=== PATIENT | female | born 1980 | race Caucasian/White ===

== ENCOUNTER 2017-01-15 07:12 | Emergency (ER) | payer BC ==
[~2017-01-15] VITALS: Ht 165.1 cm; Wt 99.3 kg
[~2017-01-15 07:12] MED LIST: ACET-1256 PO; PRENTAB26 PO
[2017-01-15 07:18] VITALS: TEMP 36.6; Ht 165.1 cm; Wt 99.3 kg
[2017-01-15] MEDS ORDERED: AMOX875T PO (07:36)
[2017-01-15] MEDS ORDERED: HYDR-5688 PO (07:36)
--- NOTE | 2017-01-15 07:39 | EMERGENCY ROOM VISIT NOTE ---
History First contact with patient: 07:21 Chief Complaint: ARM PAIN Stated Complaint: BURNING PAIN IN LT ARM,COLD SYMPTOMS,25 WKS PREG History of Present Illness The patient is a 36 year old female who is 25 weeks presents to the Emergency Room with complaints of left forearm pain. The patient states that the pain began last night at approximately 9 PM and became more severe at 1 AM. She took Tylenol without any relief. The patient states that she remembers yesterday she "popped her wrist". She states she has done this several times during her . She states that her wrist feels like it needs "crack" and she flexes her wrist and then it "pops". The patient denies any repetitive use of the left wrist. The patient is right-hand dominant. The patient is also complaining of cold symptoms of chest congestion and cough with sputum production for 10 days. She admits to some nasal congestion but denies any ear pain, sore throat or fever. The patient was seen by her PCP early onset of the symptoms and told it was viral. She states that she was instructed to take Sudafed but this has not been helping. Review of Systems 10 system review was performed and was negative unless stated otherwise history of present illness. Past Medical/Surgical History Medical Problems: (1) Asthma (2) Bronchitis (3) Pneumonia Surgical Problems: (1) Hx of appendectomy (2) Previous section Family History Cancer Diabetes mellitus Hypertension Social History Smoking Status: Former Smoker Alcohol Use: none Drug Use: none Marital Status: Housing Status: lives with family Occupation Status: employed Current/Historical Medications Scheduled Acetaminophen (Tylenol), 1,500 MG PO TODAY Multivit/Min/Iron/Fol Ac/Pren ( Vitamin), 1 TAB PO DAILY Allergies Coded Allergies: No Known Allergies (Unverified , 07/12/14) Physical Exam Vital Signs Date Time Temp Pulse Resp B/P Pulse Ox O2 Delivery O2 Flow Rate FiO2 01/15/17 07:18 36.6 98 18 114/64 95 Room Air Physical Exam PHYSICAL EXAM: Vital Signs were reviewed: Temperature 36.6, blood pressure 114/ 64, pulse 98, respiratory rate 18 Reviewed Nurse's notes and agree. Oxygen saturation is 95 % on room air which is normal . GENERAL: 36-year-old female appears in no acute distress. MENTAL STATUS: Alert, oriented, coherent. EARS: Canals clear. TMs good light reflex, no erythema or fluid level noted. NOSE: Nasal mucosa with moderate erythema engorgement. PHARYNX: No erythema, no edema noted. No exudate noted. Airway is adequate. NECK: Supple, non-tender. No lymphadenopathy noted. LUNGS: Clear to auscultation without wheezes rales or rhonchi. CARDIAC: Regular rate and rhythm without murmur. SKIN: No rashes noted. LEFT WRIST: No gross bony deformity noted. No erythema or edema noted. Full range of motion. Positive Bobby's, negative Tinel's negative feelings. Medical Decision & Procedures ED Course The patient was evaluated. The patient was placed in a wrist lacer splint. The patient drove herself to the emergency room therefore additional pain medication was not given in the ER. The patient was discharged home in stable condition. Medical Decision The decision was made to place the patient on antibiotics since she has tenderness duration of symptoms. Differential diagnosis for wrist include tendinitis or carpal tunnel. Impression Primary Impression: Tendinitis of left wrist Additional Impression: Bronchitis Departure Information Dispostion Home / Self-Care Condition GOOD Prescriptions Hydrocodone/Acetaminophen 5MG/325MG ([place] 5MG/325MG) Tab 1-2 TABLET PO Q6 Y for Pain for 3 Days, #20 TAB For Initial Treatment Prov: Jess Mclean PA-C 01/15/17 Amoxicillin & Pot Clavulanate (Augmentin 875-125 mg) 1 Tab Tab 1 TAB PO BID for 10 Days, #20 TAB Prov: Jess Mclean PA-C 01/15/17 Referrals No Doctor, Assigned (PCP) Forms HOME CARE DOCUMENTATION FORM, IMPORTANT VISIT INFORMATION Patient Instructions Bronchitis Acute, [facility] Additional Instructions BRONCHITIS: Take Augmentin as prescribed. Recommend [id number] Flonase as directed on the label. Push fluids, rest. If symptoms are not improving, follow-up with family physician. TENDINITIS LEFT WRIST: Ice several times a day or especially after repetitive use. Wear wrist splint except for bathing for 2 weeks. Take Tylenol as needed for pain. Take [place] as needed for more severe pain. Do not take Tylenol in addition to the [place], since there is Tylenol within the [place]. Do not drive while taking the [place]. If symptoms are not improving in 2 weeks, follow-up with your family physician. Problem Qualifiers
[2017-01-15 07:48] VITALS: BP 123/80; PULSE 107; O2SAT 96
[2017-04-17] MEDS ORDERED: IRON TABS PO (13:38)
[2017-04-17] MEDS ORDERED: SENNTAB23 PO (13:38)
[2017-04-17] MEDS ORDERED: ACET-1256 PO (13:38)
[2017-04-17] MEDS ORDERED: PRLSR20 PO (13:38)
[2017-04-27] MEDS ORDERED: MTR600X PO (08:49)
[2017-04-27] MEDS ORDERED: HYDR-5688 PO (08:49)
[2017-08-06] MEDS ORDERED: PENI-82 PO (22:07)
[2017-08-06] MEDS ORDERED: OXYC1TAB3 PO (22:07)
== END 2017-01-15 07:50 | disposition home or self-care (01) ==
LOC: C.EDB 07:14 → C.EDA 07:50
DX: O99.89 Other specified diseases and conditions complicating pregnancy, childbirth and the puerperium (principal); O99.512 Diseases of the respiratory system complicating pregnancy, second trimester; M77.8 Other enthesopathies, not elsewhere classified; Z3A.25 25 weeks gestation of pregnancy; J40 Bronchitis, not specified as acute or chronic; Z87.01 Personal history of pneumonia (recurrent); Z80.9 Family history of malignant neoplasm, unspecified; Z83.3 Family history of diabetes mellitus; Z82.49 Family history of ischemic heart disease and other diseases of the circulatory system; Z87.891 Personal history of nicotine dependence

== ENCOUNTER 2017-04-25 05:29 | Inpatient (IN) | payer BC ==
--- NOTE | 2017-04-17 13:56 | PAT Medication Instructions ---
Service Date Apr 17, 2017. Current Home Medication List Acetaminophen (Tylenol), 1,000 MG PO DIRECTED PRN for Pain Acetaminophen (Tylenol), 1,000 MG PO PRN Multivit/Min/Iron/Fol Ac/Pren ( Vitamin), 1 TAB PO QAM Omeprazole (Prilosec), 20 MG PO QAM PRN for RN Sennosides-Docusate Sodium (Stool Softener), 1-2 TAB PO QAM [Iron Tabs], 1 TAB PO QAM Medication Instructions For Your Scheduled Surgery - Hold the following medications the morning of surgery: [Iron Tabs], 1 TAB PO QAM Multivit/Min/Iron/Fol Ac/Pren ( Vitamin), 1 TAB PO QAM Sennosides-Docusate Sodium (Stool Softener), 1-2 TAB PO QAM - Take the following medications the morning of surgery with a sip of water OTHERWISE NOTHING TO EAT OR DRINK AFTER MIDNIGHT: Acetaminophen (Tylenol), 1,000 MG PO DIRECTED PRN for Pain (may take if needed up to 4 hours prior to surgery) Acetaminophen (Tylenol), 1,000 MG PO PRN (may take if needed up to 4 hours prior to surgery) Omeprazole (Prilosec), 20 MG PO QAM PRN If you have any questions please call us at [phone] or [phone] or [phone]
[2017-04-17 14:37] LABS: COMPLETE YES; EOS % 0.7 %; IG% 1.2 %; LYMPH % 17.7 %; MEAN CELL VOLUME 96.6 fL (80-100); MEAN CORPUSCULAR HEMOGLOBIN 32.1 pg (25-34); MEAN CORPUSCULAR HGB CONC 33.2 g/dl (32-36); MEAN PLATELET VOLUME 9.8 fL (7.4-10.4); MONO % 6.3 %; NEUT % 74.1 %; PLATELET COUNT 246 K/uL (130-400); RED BLOOD COUNT 3.52 M/uL (4.2-5.4); WHITE BLOOD COUNT 7.33 K/uL (4.8-10.8)
--- NOTE | 2017-04-24 17:05 | OPERATIVE REPORT ---
DATE OF OPERATION: 04/25/2017 REASON FOR ADMISSION: Scheduled repeat section CLINICAL HISTORY: The patient is a 36-year-old 5, para 1-0-3-1, who presents for a repeat elective section. The patient had a primary section previously for transverse presentation. The patient is electing a repeat with bilateral tubal ligation currently. 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 PAST SURGICAL HISTORY: Positive for D&E, appendectomy, eardrum surgery and . SOCIAL HISTORY: The patient is a former smoker. Denies alcohol or drug use. CURRENT MEDICATIONS: Include vitamins. ALLERGIES: CALCIUM CARBONATE ANTACID. PHYSICAL EXAMINATION: HEENT: Within normal limits. LUNGS: Clear to auscultation. HEART: Regular rate and rhythm. ABDOMEN: Soft, nontender, gravid. VITAL SIGNS: Blood pressure 116/74. EXTREMITIES: Within normal limits. NEUROLOGIC: Intact. ASSESSMENT: Term . PLAN: Elective repeat section and voluntary sterilization with bilateral tubal ligation. I attest to the content of the Intraoperative Record and any orders documented therein. Any exception s are noted below.
[~2017-04-25] VITALS: Ht 165.1 cm; Wt 102.3 kg
[2017-04-25] VITALS (16 sets, daily range): BP systolic 107–146; BP diastolic 67–93; PULSE 75–93; TEMP 36.3–36.5; O2SAT 94–100; Ht 165.1 cm; Wt 102.3 kg
[~2017-04-25 05:29] MED LIST changes: +IRON TABS PO; +PRLSR20 PO; +SENNTAB23 PO
[2017-04-25] MEDS ORDERED: LACTATED RINGER'S 1000ML 1,000 ML IV SCH ×5 (06:00→17:45)
[2017-04-25] MEDS ORDERED: CITRIC ACID/SODIUM CITRATE 15 ML UDC PO SCH (06:00)
[2017-04-25] MEDS ORDERED: CEFAZOLIN IV 3,000 MG in DEXTROSE 5% 50ML IV SCH (06:00)
[2017-04-25 06:21] LABS: BASO % 0.1 %; BASO ABS # 0.01 K/uL (0-0.2); EOS % 0.8 %; HEMATOCRIT 33.7 % (37-47); LYMPH % 21.2 %; LYMPH ABS # 1.51 K/uL (1.2-3.4); MEAN CELL VOLUME 97.4 fL (80-100); MEAN CORPUSCULAR HEMOGLOBIN 32.7 pg (25-34); MEAN PLATELET VOLUME 10.3 fL (7.4-10.4); MONO % 8.3 %; NEUT % 68.6 %; PLATELET COUNT 243 K/uL (130-400); RED BLOOD COUNT 3.46 M/uL (4.2-5.4); WHITE BLOOD COUNT 7.11 K/uL (4.8-10.8)
[2017-04-25 06:25] LABS: COMPLETE YES; MEAN CORPUSCULAR HGB CONC 33.5 g/dl (32-36)
--- NOTE | 2017-04-25 07:17 | History & Physical Bridge Note ---
H&P Re-Evaluation Bridge Note: I have examined the patient, reviewed the History & Physical and in the interval since the performance of the History & Physical I have noted the following changes of clinical significance: No changes noted
[2017-04-25] MEDS ORDERED: MoRPHine SULFATE PF 1 MG/ML 10 ML AMP/VIAL ONE (07:54)
[2017-04-25] MEDS ORDERED: FENTANYL CITRATE INJ 50 MCG/1 ML 2 ML VIAL ONE (07:55)
[2017-04-25] MEDS ORDERED: PHENYLEPHRINE HCL INJ 10 MG/ML VIAL ONE (08:18)
[2017-04-25] MEDS ORDERED: OXYTOCIN INJ 10 UNITS/ML VIAL ONE ×2 (08:18→08:45)
[2017-04-25] MEDS ORDERED: EpHEDrine SULFATE 50MG/5ML SYR ONE (08:18)
[2017-04-25] MEDS ORDERED: ONDANSETRON INJ 2 MG/ML 2 ML VIAL ONE (08:24)
[2017-04-25] MEDS ORDERED: NALOXONE HCL INJ 1 MG in SODIUM CHLORIDE 0.9% 1000ML 1,000 ML IV PRN (08:56)
[2017-04-25] MEDS ORDERED: SODIUM CHLORIDE 0.9% 1000ML 1,000 ML IV PRN (08:56)
[2017-04-25] MEDS ORDERED: NALOXONE HCL INJ 0.08 MG in SYRINGE 1.8 ML IV PRN (08:56)
[2017-04-25] MEDS ORDERED: LACTATED RINGER'S 1000ML 500 ML IV PRN (08:56)
[2017-04-25] MEDS ORDERED: ONDANSETRON INJ 2 MG/ML 2 ML VIAL IV PRN (09:00)
[2017-04-25] MEDS ORDERED: MoRPHine SULFATE PF 1 MG/ML 10 ML AMP/VIAL EPI PRN (09:00)
[2017-04-25] MEDS ORDERED: NO NARCOTICS OR SEDATIVES SCH (09:00)
[2017-04-25] MEDS ORDERED: MoRPHine SULFATE 2 MG/ML CARP IV PRN (09:00)
[2017-04-25] MEDS ORDERED: NALBUPHINE HCL INJ 10 MG/ML AMP IV PRN (09:00)
[2017-04-25] MEDS ORDERED: NALOXONE HCL 0.4 MG/1 ML VIAL/CARP IV PRN (09:00)
[2017-04-25] MEDS ORDERED: DiphenhydrAMINE HCL 50 MG/ML VIAL IV PRN (09:00)
[2017-04-25] MEDS ORDERED: EpHEDrine SULFATE INJ 50 MG/ML AMP IV PRN (09:00)
[2017-04-25] MEDS ORDERED: HYDROCORTISONE ACETATE 25 MG SUPP PR PRN (09:30)
[2017-04-25] MEDS ORDERED: SUPERCREAM 0.870 % 15GM JAR EXT PRN (09:30)
[2017-04-25] MEDS ORDERED: BENZOCAINE 20% AER SPR 82.5 GM CAN EXT PRN (09:30)
[2017-04-25] MEDS ORDERED: DIPHTHERIA/TETANUS/PERTUSSIS 0.5 ML SYR/VIAL IM. ONE (09:30)
[2017-04-25] MEDS ORDERED: MAGNESIUM HYDROXIDE SUSP 30 ML UDC PO PRN (09:30)
[2017-04-25] MEDS ORDERED: MEASLES, MUMPS & RUBELLA VIRUS VIAL SQ. ONE (09:30)
[2017-04-25] MEDS ORDERED: SENNA 8.6 MG TAB PO PRN (09:30)
[2017-04-25] MEDS ORDERED: LANOLIN OINT EXT PRN ×2 (09:30)
--- NOTE | 2017-04-25 09:34 | [facility] Post Operative Brief Note ---
Immediate Operative Summary Operative Date Apr 25, 2017. Pre-Operative Diagnosis ELECTIVE REPEAT SECTION AND VOLUNTARY STERILIZATION WITH BILATERAL TUBAL LIGATION Post-Operative Diagnosis SAME double footling breech Procedure(s) Performed Live female infant delivered via cesearean section and filshe clips applied to bilateral fallopian tubes for sterilization Surgeon Dr Lopez Stitching Machine Feeder Or Offbearer Surgeon(s) Dr Isaac Estimated Blood Loss 500 Findings Live female double footling breech nuchal cord x2 Fluids (cc crystalloids) 2400 ml LR Specimens placenta cord blood Drains Chappell clear urine Anesthesia Spinal with duramorph Complication(s) None Disposition L&D
[2017-04-25] MEDS: MEPERIDINE HCL 25 MG/ML CARP IV PRN ×2 (10:43→13:40)
[2017-04-25] MEDS: OXYTOCIN INJ 20 UNITS in LACTATED RINGER'S 1000ML 1,000 ML IV SCH ×2 (10:44→19:28)
[2017-04-25] MEDS ORDERED: KETOROLAC TROMETHAMINE 30 MG/ML VIAL ONE (11:13)
[2017-04-25] MEDS ORDERED: NURSING VERBAL MED ORDER ONE (11:15)
[2017-04-25] MEDS: KETOROLAC TROMETHAMINE 30 MG/ML VIAL IV. PRN (11:16)
[2017-04-25] MEDS ORDERED: KETOROLAC TROMETHAMINE 30 MG/ML VIAL IV. PRN (11:30)
--- NOTE | 2017-04-25 11:33 | Anesthesiology Progress Note ---
Anesthesia Post Op Note Date & Time Apr 25, 2017 at 11:32 Vital Signs Pain Intensity: 4 Notes Mental Status: alert / awake / arousable, participated in evaluation Pt Amnestic to Procedure: Yes Nausea / Vomiting: adequately controlled Pain: adequately controlled Airway Patency, RR, SpO2: stable & adequate BP & HR: stable & adequate Hydration State: stable & adequate Anesthetic Complications: no major complications apparent
[2017-04-25] MEDS: SIMETHICONE 80 MG CHEW PO SCH ×3 (12:36→19:30)
--- NOTE | 2017-04-25 18:20 | OPERATIVE REPORT ---
DATE OF OPERATION: 04/25/2017 PREOPERATIVE DIAGNOSES: Term elective repeat section and voluntary sterilization. SURGEON: Dr. Lopez. MANAGER DOCUMENT: Dr. Isaac. ANESTHESIA: Spinal with Duramorph. CLINICAL HISTORY: The patient is a 36-year-old female, para 1-0-3-1 at 39 weeks, admitted for an elective repeat section and bilateral tubal ligation. A timeout was called and antibiotics were given preop. Timeout was successful and the procedures were started. DESCRIPTION OF PROCEDURE: After satisfactory spinal anesthesia, the patient was prepped and draped in the usual sterile fashion. A low Pfannenstiel incision through a prior scar was then made entering into the abdominal cavity in successive layers. Pickups and Metzenbaums were then used to develop a bladder flap. This was then sharply dissected down. A low segment transverse incision over the lower uterine segment was made. The amniotic sac was nicked and it was found to be clear. The incision was widened in the AP diameter. The infant was found to be in the double footling breech presentation, grabbing the feet, the baby was extracted without difficulty. There was a nuchal cord x2, which was reduced at the time of delivery. The cord was doubly clamped and cut. Baby was handed to vba developer. Apgars were 7 and 9, live female. weight is pending. Cord blood was obtained. Placenta was then delivered spontaneously and intact. Uterus was then exteriorized. Ring forceps were used to grab both angles and another ring was then used to dilate the cervix. The uterus was closed in a single layer closure using 0 Vicryl suture in a continuous interlocking fashion followed by irrigation, which was clear. Tubes were identified bilaterally. Both tubes were found to be free and 2 Filshie clips were applied to both tubes in the usual manner without difficulty. The contents of the pelvic cavity were then irrigated. The uterus was then placed back into the normal anatomical position. The fascia was then reapproximated from both ends using #1 Vicryl in a continuous fashion. Subcuticular space was irrigated. The subQ space was then closed with 3-0 plain suture, followed by 4-0 Monocryl suture for subcuticular closure of the skin. Steri-Strips were then applied. Clear urine was noted from the Chappell. Estimated blood loss was 500 mL. The final sponge, needle and instrument counts were found to be correct. The patient was placed supine on a stretcher. She was taken to recovery room in stable condition. I attest to the content of the Intraoperative Record and any orders documented therein. Any exception s are noted below.
[2017-04-25] MEDS: DOCUSATE SODIUM 100 MG CAP PO SCH (19:30)
[2017-04-26] VITALS (7 sets, daily range): BP systolic 120–144; BP diastolic 77–81; PULSE 82–103; TEMP 36.4–36.6; O2SAT 18–100
[2017-04-26] MEDS: KETOROLAC TROMETHAMINE 30 MG/ML VIAL IV. PRN (01:07)
[2017-04-26] MEDS ORDERED: DC INTRASPINAL MORPHINE SCH (02:15)
[2017-04-26] MEDS: IBUPROFEN 600 MG TAB PO PRN ×3 (06:42→21:04)
[2017-04-26 07:01] LABS: BASO % 0.1 %; BASO ABS # 0.01 K/uL (0-0.2); COMPLETE YES; EOS % 1.2 %; HEMATOCRIT 31.9 % (37-47); IG% 0.8 %; LYMPH % 13.6 %; LYMPH ABS # 1.21 K/uL (1.2-3.4); MEAN CELL VOLUME 98.2 fL (80-100); MEAN CORPUSCULAR HEMOGLOBIN 32.9 pg (25-34); MEAN CORPUSCULAR HGB CONC 33.5 g/dl (32-36); MEAN PLATELET VOLUME 10.2 fL (7.4-10.4); MONO % 7.1 %; NEUT % 77.2 %; PLATELET COUNT 193 K/uL (130-400); RED BLOOD COUNT 3.25 M/uL (4.2-5.4)
[2017-04-26] MEDS: FERROUS SULFATE 325 MG TAB PO SCH (07:32)
[2017-04-26] MEDS: DOCUSATE SODIUM 100 MG CAP PO SCH ×2 (07:32→20:44)
[2017-04-26] MEDS: SIMETHICONE 80 MG CHEW PO SCH ×4 (07:32→20:44)
[2017-04-26] MEDS: PRENATAL VITAMIN TAB PO SCH (07:32)
[2017-04-26] MEDS: OXYCODONE/ACETAMINOPHEN 5-325 TAB PO PRN ×2 (09:02→13:13)
[2017-04-26] MEDS ORDERED: ONDANSETRON INJ 2 MG/ML 2 ML VIAL IV PRN (09:15)
[2017-04-26] MEDS ORDERED: DiphenhydrAMINE HCL 50 MG/ML VIAL IV PRN (09:15)
[2017-04-26] MEDS ORDERED: HYDROCODONE/ACETAMOPHEN 5/325MG TAB PO PRN (15:45)
[2017-04-26] MEDS: HYDROCODONE/ACETAMOPHEN 5/325MG TAB PO PRN ×2 (18:05→23:51)
[2017-04-26] MEDS ORDERED: BISACODYL 5 MG TABEC PO ONE (22:00)
[2017-04-27] MEDS: SIMETHICONE 80 MG CHEW PO SCH (07:36)
[2017-04-27] MEDS: PRENATAL VITAMIN TAB PO SCH (07:36)
[2017-04-27] MEDS: DOCUSATE SODIUM 100 MG CAP PO SCH (07:36)
[2017-04-27] MEDS: FERROUS SULFATE 325 MG TAB PO SCH (07:36)
[2017-04-27] MEDS: IBUPROFEN 600 MG TAB PO PRN (07:37)
[2017-04-27] MEDS: HYDROCODONE/ACETAMOPHEN 5/325MG TAB PO PRN ×2 (07:37→12:48)
[2017-04-27 07:40] VITALS: BP 128/85; PULSE 91; TEMP 36.6; O2SAT 99
[2017-04-27] MEDS ORDERED: HYDR-5688 PO (08:49)
[2017-04-27] MEDS ORDERED: MTR600X PO (08:49)
--- NOTE | 2017-04-27 08:51 | Discharge Instructions ---
Discharge Instructions Date of Service Apr 27, 2017. Admission Reason for Admission: Previous Section, Breech, Desires Sterili Discharge Discharge Diagnosis / Problem: term pregnacy delivered Discharge Goals Goal(s): Routine recovery after delivery, Routine recovery after Activity Recommendations Activity Limitations: as noted below Lifting Limitations: no more than 10 pounds, gradually increase as tolerated Exercise/Sports Limitations: until after follow-up appointment May Resume Sexual Activity: after follow-up appointment Shower/Bathe: no limitations Driving or Machine Use: no limitations . Instructions / Follow-Up Instructions / Follow-Up ACTIVITY RECOMMENDATIONS: * Gradual return to full activity over the next 2-3 weeks. * No lifting - nothing heavier than baby over the next 2-3 weeks. * Do not engage in vigorous exercise, sexual activity or sports until cleared by your physician. * Do not drive or operate any motorized equipment until cleared by your physician. * You may shower/bathe daily. BREAST CARE: If you are not breast feeding: * Wear a supportive bra 24 hours a day for one to two weeks. * Avoid stimulating your breasts and nipples as much as possible during the first few weeks after delivery. * When taking a shower, have the warm water hit your back, not breasts. * When your breasts feel full, apply ice packs. Usually three to four times a day helps ease the discomfort. * Take a mild pain medication (Tylenol/Motrin) when you are uncomfortable. If breast feeding: * Use breast milk to lubricate nipples. Lansinoh cream may be used for sore nipples. You do not need to remove cream prior to breast feeding. If using a different brand of cream, check the label for directions regarding removal of cream prior to nursing. * Wear a supportive bra. * If having problems with breasts or breast feeding, call a philatelic consultant or your health care provider. OVER THE COUNTER MEDICATION: * For discomfort or pain, you may use Acetaminophen (Tylenol), Ibuprofen (Advil ), or Naproxen (Aleve) following the package directions. * For constipation you may use Colace following the package directions. SPECIAL CARE INSTRUCTIONS: When you are discharged from the hospital, it is important for you to follow the instructions listed below: * During the first week at home, you should be able to care for yourself and your baby. In addition, the usual light household activities are encouraged. * Limit your activities to the way you feel. Do not try to clean the house or move furniture. Be sensible. * If you actively engage in sports and have done so up until the time of your delivery, you may resume these activities as soon as you feel able. This may take up to one month or even longer. Use good judgment. * Continue to take your vitamins for at least six weeks after the of your baby. * Your diet need not be limited unless you were on a special diet before your delivery. Breast-feeding mothers need around 2500 calories per day and at least 64-80 ounces of fluid per day (8 to 10 glasses). * You should eat foods from the four major food groups. Crash diets or fad diets are to be avoided. Eating lean meats, fresh fruits and vegetables, low-fat dairy products, high fiber foods and a regular exercise program, will help you get back to your pre- weight without putting your health at risk. * Constipation is sometimes a problem after delivery. Take a mild laxative as needed. If breast feeding, Milk of Magnesia is acceptable to use. You may use a suppository or Fleets enema if no episiotomy. * A daily shower or tub bath is suggested. Be sure to thoroughly and gently dry the perineum. * A bloody vaginal discharge will usually continue until around four weeks post . A small amount of bleeding may continue for as long as six weeks. Vaginal discharge changes from the bright red bleeding after delivery to pink then brownish and finally yellowish-pink before becoming white and disappearing. * Bleeding may increase with activity. Your first period may come in 4-8 weeks. If you are breast feeding, your period may be delayed even longer. * [place] (sex) can begin whenever both you and your partner feel comfortable and do not have any form of genital infection. It is recommended that you wait at least six weeks for internal and external healing to occur. If you have questions, please talk to your health care practitioner. A condom should be used to prevent infection and . * Foreplay, gentle intercourse and lubrication is very important the first several times to prevent pain. A water-based lubricant such as K-Y jelly or Astroglide may be used. * Tampons and/or Douching should be avoided until after six weeks check-up. * If you have RH negative blood and your baby is RH positive, you will receive RHOGAM by injection prior to discharge. The nurse will give you a card to keep with you that has the date and place that you received RHOGAM after delivery. * During your care, you had a Rubella screen done to check for the presence of rubella antibodies in your blood. If your test was negative, you will receive a Rubella vaccine prior to discharge. This vaccine may cause a fever, soreness at the injection site and flu-like symptoms. If these symptoms persist, notify your health care practitioner. is not advised for three months after a Rubella vaccine. * Verbalizes understanding of car seat law as reviewed with patient nursing. * Car Seat hand-out given and reviewed with patient by nursing. * Shaken baby information reviewed with patient by nursing. Call you doctor if: * Heavy bleeding (saturating several pads an hour) or passing clots the size of your fist. * A fever >101 degrees F (38.3 degrees C) on two occasions four hours apart and /or chills. * Unusual pain in the pelvic or vaginal areas. Pain should improve each day . * Call the doctor for any increased redness, drainage or swelling around the incision and any pain unrelieved by prescribed pain medication. * Any signs or symptoms of phlebitis (possible blood clots forming in the veins ): leg pain, warm, red or swollen area on leg. * "Baby Blues" lasting longer than two weeks. If you have any questions or concerns, call your health care practitioner at . FOLLOW-UP VISIT: * Incision check (staple removal) in 1 week. Please call doctor's office at to set up appointment. * Please call the office at to schedule a 6 week examination. It is important you keep this appointment. * It is important for you to make arrangements for either yearly or twice yearly check-ups thereafter. Current Hospital Diet Patient's current hospital diet: Regular Diet Discharge Diet Recommended Diet: Regular OB Diet Fluid Restriction: None Procedures Procedures Performed: Live female delivered via cesearean section and filshe clips applied to bilateral fallopian tubes for sterilization Pending Studies Studies pending at discharge: no Medical Emergencies . Who to Call and When: Medical Emergencies: If at any time you feel your situation is an emergency, please call 911 immediately. . Non-Emergent Contact Non-Emergency issues call your: Primary Care Provider . . "Provider Documentation" section prepared by Sanjay Lopez. . VTE Core Measure Inpt VTE Proph given/why not?: Treatment not indicated
--- NOTE | 2017-04-27 08:52 | Surgery Progress Note ---
Surgery Progress Note Date of Service Apr 27, 2017. Subjective Post OP Day: 2 + feeling well Objective Vital Signs: Date Time Temp Pulse Resp B/P (MAP) Pulse Ox O2 Delivery O2 Flow Rate FiO2 04/27/17 07:40 99 Room Air 04/27/17 07:40 36.6 91 18 128/85 (99) 99 Room Air 04/26/17 23:55 97 Room Air 04/26/17 23:55 36.6 99 18 144/80 (101) 97 Room Air 04/26/17 15:40 Room Air 04/26/17 15:34 36.4 100 20 124/81 (95) 96 Room Air General Appearance: no apparent distress Abdomen: non tender, non distended Incision(s): clean, dry, intact Extremities: normal range of motion Assessment & Plan POD#2 d/c regular diet
[2017-04-27] MEDS ORDERED: BISACODYL 10 MG SUPP PR PRN (09:30)
[2017-04-27 12:45] VITALS: BP_DIAS 85; PULSE 91; TEMP 36.6
--- NOTE | 2017-05-10 10:44 | DISCHARGE SUMMARY ---
REASON FOR ADMISSION AND HOSPITAL COURSE: The patient is a 36-year-old female 5, para 1-0-3-1, who presents for an elective repeat section at term. She is also requesting a bilateral tubal ligation. section was done under spinal anesthesia without difficulty. The patient was noted to be a double footling breech. She had a tubal ligation, which was performed at the time of surgery. The patient delivered without incident. There was a nuchal cord x2. Live female. The hospital course was unremarkable. The patient was discharged on 04/27/2017. She was given Tylenol #3 along with the continuation of her vitamins. She was given a regular diet on discharge and she was to be followed up in 1 week in the clinic. FINAL DISCHARGE DIAGNOSIS: Term delivered with voluntary sterilization. ANURAG
== END 2017-04-27 13:15 | disposition home or self-care (01) | DRG 766 ==
LOC: C.LD 05:29 → EDSTATUS 07:30 → C.OBG 11:21
PROVIDERS: ADMIT Obstetrics & Gynecology; ATTEND Obstetrics & Gynecology
PROC: 0UL70CZ Occlusion of Bilateral Fallopian Tubes with Extraluminal Device, Open Approach (ICD-10-PCS; principal; 2017-04-25 07:30)
PROC: 10D00Z1 Extraction of Products of Conception, Low, Open Approach (ICD-10-PCS; principal; 2017-04-25 07:30)
DX: O34.211 Maternal care for low transverse scar from previous cesarean delivery (principal); O32.8XX0 Maternal care for other malpresentation of fetus, not applicable or unspecified; N85.8 Other specified noninflammatory disorders of uterus; O69.81X0 Labor and delivery complicated by cord around neck, without compression, not applicable or unspecified; O99.62 Diseases of the digestive system complicating childbirth; K21.9 Gastro-esophageal reflux disease without esophagitis; O99.214 Obesity complicating childbirth; E66.9 Obesity, unspecified; Z68.37 Body mass index [BMI] 37.0-37.9, adult; Z30.2 Encounter for sterilization; Z3A.39 39 weeks gestation of pregnancy; Z37.0 Single live birth; Z87.891 Personal history of nicotine dependence; Z79.899 Other long term (current) drug therapy

== ENCOUNTER 2017-05-05 16:06 | Emergency (ER) | payer BC ==
[~2017-05-05] VITALS: Ht 167.6 cm; Wt 96.7 kg
[~2017-05-05 16:06] MED LIST changes: +HYDR-5688 PO; +MTR600X PO; -SENNTAB23 PO
[2017-05-05 16:09] VITALS: TEMP 36.6; Ht 167.6 cm; Wt 96.7 kg
--- NOTE | 2017-05-05 16:29 | EMERGENCY ROOM VISIT NOTE ---
History Report prepared by Scribe: Hetal Figueroa Under the Supervision of: Dr. Charlie Driscoll M.D. First contact with patient: 16:15 Chief Complaint: INFECTION Stated Complaint: CSECTION 04/25/17, PAIN/BLEEDING W YELLO DISCHARGE History of Present Illness The patient is a 36 year old female who presents to the Emergency Room with complaints of a worsening infection. She had a section performed on April 25 and states the surgical wound has become increasingly red and is now producing yellow discharge. The wound occasionally bleeds. She rates her discomfort as a 7/10 and describes the area has feeling "tender". The wound was originally closed with sutures. Last night, the patient went to sit up and states she was struck with "screaming pain". The patient denies any recent fevers, chills, cough or cold symptoms, back pain, nausea, vomiting or diarrhea. She notes her feet are swollen, but states this has been constant since her daughter was born. Her CYBER CRIME INVESTIGATOR is Dr. Lopez with [facility]. Source of History: patient Onset: April 25, 2017 Position: abdomen Symptom Intensity: 7/10 Quality: other ("tender") Timing: worsening Associated Symptoms: No fevers, No chills, No cough (cough or cold symptoms) , No nausea, No vomiting, No diarrhea Review of Systems See HPI for pertinent positives and negatives. A total of ten systems were reviewed and were otherwise negative. Past Medical & Surgical Medical Problems: (1) Asthma (2) Bronchitis (3) elective repeat at term (4) Pneumonia Surgical Problems: (1) Hx of appendectomy (2) Previous section Family History Cancer Diabetes mellitus Hypertension Social History Smoking Status: Former Smoker Alcohol Use: none Drug Use: none Marital Status: Housing Status: lives with family Occupation Status: employed Current/Historical Medications Scheduled Acetaminophen (Tylenol), 1,000 MG PO PRN Clindamycin Hcl (Clindamycin Hcl), 3 CAP PO QID Multivit/Min/Iron/Fol Ac/Pren ( Vitamin), 1 TAB PO HS Saccharomyces Boulardii (Florastor), 1 CAP PO BID Scheduled PRN Acetaminophen (Tylenol), 1,000 MG PO DIRECTED PRN for Pain Ibuprofen (Ibuprofen), 1 TAB PO Q4H PRN for Pain or Fever Oxycodone Ir (Roxicodone Ir), 1-2 TAB PO Q4H PRN for Pain Allergies Coded Allergies: Oxycodone (Verified Allergy, Unknown, SEVERE HEADACHE-REBOUND, 04/25/17) Physical Exam Vital Signs Date Time Temp Pulse Resp B/P (MAP) Pulse Ox O2 Delivery O2 Flow Rate FiO2 05/05/17 19:53 86 18 131/88 99 05/05/17 17:59 88 18 119/78 100 Room Air 05/05/17 16:09 36.6 89 20 125/73 98 Room Air Physical Exam GENERAL: Awake, alert, well-appearing, in no distress HENT: Normocephalic, atraumatic. Oropharynx unremarkable. EYES: Normal conjunctiva. Sclera non-icteric. NECK: Supple. No nuchal rigidity. FROM. No JVD. RESPIRATORY: Clear to auscultation. CARDIAC: Regular rate, normal rhythm. Extremities warm and well perfused. Pulses equal. ABDOMEN: Soft, non-distended. Mild suprapubic, infraumbilical tenderness to palpation, no peritoneal signs. No rebound or guarding. No masses. RECTAL: Deferred. PELVIC: Mildly bloody discharge from cervical os, no CMT, normal mucosa. MUSCULOSKELETAL: Chest examination reveals no tenderness. The back is symmetrical on inspection without obvious abnormality. There is no CVA tenderness to palpation. No joint edema. LOWER EXTREMITIES: Calves are equal size bilaterally and non-tender. 2+ edema bilaterally. No discoloration. NEURO: Normal sensorium. No sensory or motor deficits noted. SKIN: Mild erythema across incision site, with induration and fluctuance in left lateral area, dehiscence in far left lateral aspect of incision site. No rash or jaundice noted. Medical Decision & Procedures ER Provider Diagnostic Interpretation: Bedside Ultrasound shows a .5 cm abscess on the left lateral aspect of the incision site. Laboratory Results 05/05/17 17:00 Red Blood Count 3.98, Mean Corpuscular Volume 97.0, Mean Corpuscular Hemoglobin 32.2, Mean Corpuscular Hemoglobin Concent 33.2, Mean Platelet Volume 9.4, Neutrophils (%) (Auto) 58.3, Lymphocytes (%) (Auto) 33.4, Monocytes (%) (Auto) 5.5, Eosinophils (%) (Auto) 2.3, Basophils (%) (Auto) 0.2, Neutrophils # (Auto) 3.57, Lymphocytes # (Auto) 2.05, Monocytes # (Auto) 0.34, Eosinophils # (Auto) 0.14, Basophils # (Auto) 0.01 05/05/17 17:00 Test 05/05/17 16:52 05/05/17 17:00 Urine Color YELLOW Urine Appearance CLEAR (CLEAR) Urine pH 7.0 (4.5-7.5) Urine Specific [place] 1.022 (1.000-1.030) Urine Protein NEG (NEG) Urine Glucose (UA) NEG (NEG) Urine Ketones NEG (NEG) Urine Occult Blood 3+ (NEG) Urine Nitrite NEG (NEG) Urine Bilirubin NEG (NEG) Urine Urobilinogen NEG (NEG) Urine Leukocyte Esterase SMALL (NEG) Urine WBC (Auto) 5-10 /hpf (0-5) Urine RBC (Auto) >30 /hpf (0-4) Urine Hyaline Casts (Auto) 1-5 /lpf (0-5) Urine Epithelial Cells (Auto) 20-30 /lpf (0-5) Urine Bacteria (Auto) NEG (NEG) White Blood Count 6.13 K/uL (4.8-10.8) Red Blood Count 3.98 M/uL (4.2-5.4) Hemoglobin 12.8 g/dL (12.0-16.0) Hematocrit 38.6 % (37-47) Mean Corpuscular Volume 97.0 fL (80-100) Mean Corpuscular Hemoglobin 32.2 pg (25-34) Mean Corpuscular Hemoglobin Concent 33.2 g/dl (32-36) Platelet Count 378 K/uL (130-400) Mean Platelet Volume 9.4 fL (7.4-10.4) Neutrophils (%) (Auto) 58.3 % Lymphocytes (%) (Auto) 33.4 % Monocytes (%) (Auto) 5.5 % Eosinophils (%) (Auto) 2.3 % Basophils (%) (Auto) 0.2 % Neutrophils # (Auto) 3.57 K/uL (1.4-6.5) Lymphocytes # (Auto) 2.05 K/uL (1.2-3.4) Monocytes # (Auto) 0.34 K/uL (0.11-0.59) Eosinophils # (Auto) 0.14 K/uL (0-0.5) Basophils # (Auto) 0.01 K/uL (0-0.2) RDW Standard Deviation 49.8 fL (36.4-46.3) RDW Coefficient of Variation 13.8 % (11.5-14.5) Immature Granulocyte % (Auto) 0.3 % Immature Granulocyte # (Auto) 0.02 K/uL (0.00-0.02) Anion Gap 8.0 mmol/L (3-11) Est Creatinine Clear Calc Drug Dose 118.4 ml/min Estimated GFR () 115.1 Estimated GFR (Non- 99.3 BUN/Creatinine Ratio 24.8 (10-20) Calcium Level 9.2 mg/dl (8.5-10.1) Laboratory results reviewed by me Medications Administered Medications (Trade) Dose Ordered Sig/Rachael Route Start Time Stop Time Status Last Admin Dose Admin Acetaminophen (Tylenol Tab) 1,000 mg NOW STAT PO 05/05/17 18:23 05/05/17 18:24 DC 05/05/17 18:37 1,000 MG Clindamycin HCl (Cleocin Cap) 450 mg ONE ONCE PO 05/05/17 19:45 05/05/17 19:46 DC 05/05/17 19:51 450 MG Oxycodone HCl (Roxicodone Immediate Rel Tab) 5 mg NOW STAT PO 05/05/17 19:44 05/05/17 19:46 DC 05/05/17 19:51 5 MG ED Course 1641: The patient was evaluated in room C2B. A complete history and physical exam was performed. 1853: Acetaminophen 1000 mg PO. 1838: I discussed the patients case with Washington Jennings CYBER CRIME INVESTIGATOR. He recommends oral antibiotics and will follow up with the patient on Sunday in the office. 1903: I reevaluated the patient. She is feeling well and resting comfortably. I discussed her results and discharge instructions and she verbalized complete understanding and agreement. Medical Decision I reviewed the patient's past medical history, medications, and the nursing notes as described above. Differential diagnosis includes abscess, cellulitis, wound dehiscence, endometritis Patient is a 36-year-old woman with a past medical history of a section at the end of March presents with worsening abdominal pain at the incision site which had been sutured, patient felt a pop last night when sitting up per history of present illness. This occurs in the setting of having some mild wound dehiscence in the left lateral aspect of her incision site. Patient arrives to emergency department in no acute distress, afebrile with stable vital signs. Abdomen is mildly tender along the incision site but no peritoneal signs. Slight dehiscence on the left lateral aspect with associated induration and underlying fluctuance. Bedside ultrasound shows 0.5 cm fluid collection in that area consistent with abscess. Pelvic exam with mild bloody discharge from the cervical os otherwise no CMT and mucosa appears normal. WBC within normal limits and patient is afebrile. Considering this, with reassuring pelvic exam, endometritis unlikely. I discussed this with CYBER CRIME INVESTIGATOR on-call who agrees that with normal white count, no fever, and well-appearing that the patient may be managed outpatient. Recommends oral antibiotics and will follow up on Sunday. Findings and plan for f/u d/w patient. Patient agreeable and d/c'd per discharge instructions. Medication Reconcilliation Current Medication List: was personally reviewed by me Blood Pressure Screening Patient's blood pressure: Normal blood pressure Blood pressure disposition: Did not require urgent referral Consults Time Called: 1829 Consulting Physician: Washington Jennings CYBER CRIME INVESTIGATOR Returned Call: [phone] I discussed the patients case with Washington Jennings CYBER CRIME INVESTIGATOR. He recommends oral antibiotics and will follow up with the patient on Sunday in the office. Impression Primary Impression: Abscess Additional Impression: Cellulitis Scribe Attestation The scribe's documentation has been prepared under my direction and personally reviewed by me in its entirety. I confirm that the note above accurately reflects all work, treatment, procedures, and medical decision making performed by me. Departure Information Dispostion Home / Self-Care Prescriptions Oxycodone Ir (Roxicodone Ir) 5 Mg Tab 1-2 TAB PO Q4H Y for Pain, #5 TAB Prov: Charlie Driscoll M.D. 05/05/17 Saccharomyces Boulardii (Florastor) 250 Mg Cap 1 CAP PO BID for 10 Days, #20 CAP Prov: Charlie Driscoll M.D. 05/05/17 Clindamycin Hcl (CLINDAMYCIN HCL) 150 Mg Cap 3 CAP PO QID for 7 Days, #84 CAP Prov: Charlie Driscoll M.D. 05/05/17 Referrals No Doctor, Assigned (PCP) Patient Instructions Cellulitis Dc, ED Abscess Abx Tx Only Ch, My [facility] Additional Instructions Please follow up with your youth nutritional monitor on Sunday. You have an infection of her surgical site with a small associated abscess. Otherwise, your exam and lab results did not show signs of an emergent condition. Take antibiotics as directed as well as probiotic to help prevent antibiotic associated diarrhea. Acetaminophen for pain as needed. Oxycodone for breakthrough pain as needed. Return to the emergency department for worsening symptoms as described in the accompanying instructions. Problem Qualifiers
[2017-05-05] MEDS ORDERED: SODIUM CHLORIDE 0.9% 1000ML 1,000 ML IV STA (16:38)
[2017-05-05] MEDS ORDERED: MTR/600 PO (17:04)
[2017-05-05 17:14] LABS: URINE APPEARANCE CLEAR (CLEAR); URINE BILIRUBIN NEG (NEG); URINE COLOR YELLOW; URINE EPITHELIAL CELL AUTO 20-30 /lpf (0-5); URINE NITRITE NEG (NEG); URINE SPECIFIC GRAVITY 1.022 (1.000-1.030); UROBILINOGEN NEG (NEG); ZZUR CULT IF INDIC CLEAN CATCH NO
[2017-05-05 17:15] LABS: MANUAL MICROSCOPIC REQUIRED? NO; REVIEW REQ? NO
[2017-05-05 17:18] LABS: BASO % 0.2 %; BASO ABS # 0.01 K/uL (0-0.2); COMPLETE YES; EOS % 2.3 %; HEMATOCRIT 38.6 % (37-47); IG% 0.3 %; LYMPH % 33.4 %; LYMPH ABS # 2.05 K/uL (1.2-3.4); MEAN CORPUSCULAR HEMOGLOBIN 32.2 pg (25-34); MEAN CORPUSCULAR HGB CONC 33.2 g/dl (32-36); MEAN PLATELET VOLUME 9.4 fL (7.4-10.4); MONO % 5.5 %; NEUT % 58.3 %; PLATELET COUNT 378 K/uL (130-400); RED BLOOD COUNT 3.98 M/uL (4.2-5.4); WHITE BLOOD COUNT 6.13 K/uL (4.8-10.8)
[2017-05-05 17:37] LABS: BUN/CREATININE RATIO 24.8 (10-20); CALCIUM 9.2 mg/dl (8.5-10.1); CREATININE 0.77 mg/dl (0.60-1.20); POTASSIUM 3.8 mmol/L (3.5-5.1)
[2017-05-05] MEDS ORDERED: ACETAMINOPHEN 500 MG TAB PO STA (18:23)
[2017-05-05] MEDS ORDERED: CLIN150C15 PO (19:36)
[2017-05-05] MEDS ORDERED: SACC250C3 PO (19:36)
[2017-05-05] MEDS ORDERED: OXYC1TAB3 PO (19:36)
[2017-05-05] MEDS ORDERED: OXYCODONE HCL IR 5 MG TAB (IMMEDIATE RELEASE) PO STA (19:44)
[2017-05-05] MEDS ORDERED: CLINDAMYCIN HCL 150 MG CAP PO ONE (19:45)
[2017-05-05 19:53] VITALS: BP 131/88; PULSE 86; O2SAT 99
== END 2017-05-05 19:53 | disposition home or self-care (01) ==
LOC: C.EDB 16:09 → C.EDC 19:53
DX: L02.211 Cutaneous abscess of abdominal wall (principal); L03.311 Cellulitis of abdominal wall; J45.909 Unspecified asthma, uncomplicated; Z87.01 Personal history of pneumonia (recurrent); Z80.9 Family history of malignant neoplasm, unspecified; Z83.3 Family history of diabetes mellitus; Z82.49 Family history of ischemic heart disease and other diseases of the circulatory system; Z87.891 Personal history of nicotine dependence

== ENCOUNTER → 2017-05-31 | Outpatient (CLI) | payer BC ==
[~2017-05-31] MED LIST changes: +CLIN150C15 PO; -HYDR-5688 PO; -IRON TABS PO; +MTR/600 PO; -MTR600X PO; +OPTIRAY 320 IV PRN; +OXYC1TAB3 PO; -PRLSR20 PO; +SACC250C3 PO
--- NOTE | 2017-05-31 15:31 | DIAGNOSTIC IMAGING REPORT ---
(CHEST FOR PE) ANGIO WITH CLINICAL HISTORY: 36 years-old Female presenting with chest pain, shortness of breath, elevated d-dimer. TECHNIQUE: Multidetector CT angiography of the chest was performed after administration of intravenous contrast. 3-D volumetric and maximum intensity projection (MIP) images were subsequently reconstructed for review. IV contrast: 119 mL of Optiray 320. A dose lowering technique was used consistent with the principles of ALARA (as low as reasonably achievable). COMPARISON: None. CT DOSE (mGy.cm): The estimated cumulative dose is 614.43 mGycm. FINDINGS: Ems Driver topogram: Unremarkable. Pulmonary vasculature: The study is suboptimal for assessment of the pulmonary vascular tree secondary to respiratory motion artifact. No filling defect within the pulmonary arteries to suggest embolus. Main pulmonary artery not enlarged. No flattening of the interventricular septum. No intracardiac filling defect. Remaining chest: On soft tissue windows, multiple thyroid nodules measuring up to 14 mm on the right and 13 mm on the left. Residual thymic tissue noted. No axillary, supraclavicular, hilar, or mediastinal lymphadenopathy. Normal aorta. Normal heart size. No pericardial or pleural effusion. Upper abdomen normal. On lung windows, pulmonary cyst noted in the right lower lobe. This may indicate prior infection or trauma. No focal infiltrate. No interlobular septal thickening. Airways patent. On bone windows, normal osseous structures. IMPRESSION: 1. No evidence of pulmonary embolus. No convincing evidence of acute intrathoracic pathology. 2. Multiple thyroid nodules measuring over 1 cm. Follow-up outpatient ultrasound could be considered as clinically warranted. Electronically signed by: Mikey Godinez M.D. 05/31/2017 3:30 PM Dictated Date/Time: 05/31/2017 3:24 PM
== END | disposition home or self-care (01) ==
LOC: C.CTS 15:02
PROVIDERS: ATTEND Physician Assistant
DX: R07.9 Chest pain, unspecified (principal); R06.02 Shortness of breath; R79.89 Other specified abnormal findings of blood chemistry

== ENCOUNTER 2017-08-26 16:40 | Emergency (ER) | payer BC ==
[~2017-08-26] VITALS: Ht 167.6 cm; Wt 96.9 kg
[~2017-08-26 16:40] MED LIST changes: -CLIN150C15 PO; -OPTIRAY 320 IV PRN; +PENI-82 PO; -PRENTAB26 PO; -SACC250C3 PO
[2017-08-26 16:43] VITALS: TEMP 36.4; Ht 167.6 cm; Wt 96.9 kg
[2017-08-26] MEDS ORDERED: LACTATED RINGER'S 1000ML 1,000 ML IV STA (16:50)
[2017-08-26] MEDS ORDERED: ONDANSETRON INJ 2 MG/ML 2 ML VIAL IV STA (16:50)
[2017-08-26] MEDS ORDERED: FENTANYL CITRATE INJ 50 MCG/1 ML 2 ML VIAL IV STA (16:50)
--- NOTE | 2017-08-26 17:05 | EMERGENCY ROOM VISIT NOTE ---
History Report prepared by Merrill: Dyana Tabor Under the Supervision of: Dr. Charlie Driscoll M.D. First contact with patient: 16:47 Chief Complaint: CARDIAC ASSESSMENT Stated Complaint: PAIN IN CHEST/RIBS AND BACK History of Present Illness The patient is a 36 year old female who presents to the Emergency Room with complaints of intermittent chest pain across her lower ribs beginning 2 hours ago. The patient notes she had pain like this in May but it only lasted about 30 minutes in the past. The patient reports her doctor thought her pain may be anxiety related. She has some medical testing with her PCP tomorrow but she is unsure of what it is for. The patient notes eating a delayed thanksgiving dinner today and reports her pain started 15 minutes after eating. She notes nausea but denies any fever, cough, or congestion. The patient took Prilosec and ibuprofen with no relief. The patient is not a smoker. She denies any alcohol use, drug use or chance of . The patient has a history of tubal ligation. Source of History: patient Onset: 2 hours ago Position: chest Timing: intermittent Associated Symptoms: + nausea, No fevers, No cough Review of Systems See HPI for pertinent positives and negatives. A total of ten systems were reviewed and were otherwise negative. Past Medical & Surgical Medical Problems: (1) Asthma (2) Bronchitis (3) elective repeat at term (4) Pneumonia Surgical Problems: (1) Hx of appendectomy (2) Previous section Family History Cancer Diabetes mellitus Hypertension Social History Smoking Status: Former Smoker Alcohol Use: none Drug Use: none Marital Status: Housing Status: lives with family Occupation Status: employed Current/Historical Medications Scheduled Omeprazole (Prilosec), 20 MG PO DAILY Scheduled PRN Ibuprofen (Advil), 400 MG PO UD PRN for Pain Allergies Coded Allergies: Oxycodone (Verified Adverse Reaction, Unknown, SEVERE HEADACHE-REBOUND, ) pt states if she gets a headache when taking this, tylenol will make it go away Physical Exam Vital Signs Date Time Temp Pulse Resp B/P (MAP) Pulse Ox O2 Delivery O2 Flow Rate FiO2 08/26/17 19:20 77 20 118/83 100 Room Air 08/26/17 18:31 97 20 130/81 97 Room Air 08/26/17 17:21 83 08/26/17 16:43 36.4 97 20 145/76 100 Room Air Physical Exam GENERAL: Awake, alert, uncomfortable, anxious-appearing, in no distress HENT: Normocephalic, atraumatic. Oropharynx unremarkable. Dry MM. EYES: Normal conjunctiva. Sclera non-icteric. NECK: Supple. No nuchal rigidity. FROM. No JVD. RESPIRATORY: Clear to auscultation. CARDIAC: Regular rate, normal rhythm. Extremities warm and well perfused. Pulses equal. ABDOMEN: Soft, non-distended. Mild epigastric tenderness, mild right upper quadrant tenderness with positive Arango's, no peritoneal signs. RECTAL: Deferred. MUSCULOSKELETAL: Chest examination reveals no tenderness. The back is symmetrical on inspection without obvious abnormality. There is no CVA tenderness to palpation. No joint edema. LOWER EXTREMITIES: Calves are equal size bilaterally and non-tender. No edema. No discoloration. NEURO: Normal sensorium. No sensory or motor deficits noted. SKIN: No rash or jaundice noted. Medical Decision & Procedures ER Provider Diagnostic Interpretation: Radiology results as stated below per my review and radiologist interpretation: EMMD: Enlarged gallbladder with several large mobile gallstones with a likely lodged gallstone in gallbladder neck, no gross pericholecystic fluid. CHEST ONE VIEW PORTABLE FINDINGS: The lungs are clear. Cardiac silhouette is normal in size. No pleural effusions. No pneumothorax. IMPRESSION: No acute process. Electronically signed by: Selwyn Aldrich M.D. ABDOMINAL ULTRASOUND, RIGHT UPPER QUADRANT FINDINGS: Pancreas: The pancreas demonstrates a normal echotexture. Liver: Unremarkable. Gallbladder: No gallbladder wall thickening. Multiple small gallstones. CBD: 5 mm. Right kidney: No hydronephrosis. IMPRESSION: 1. Multiple small gallstones. No gallbladder wall thickening. 2. Normal caliber common bile duct. Electronically signed by: Selwyn Aldrich M.D. Laboratory Results 08/26/17 17:26 Red Blood Count 4.00, Mean Corpuscular Volume 95.0, Mean Corpuscular Hemoglobin 33.0, Mean Corpuscular Hemoglobin Concent 34.7, Mean Platelet Volume 9.6, Neutrophils (%) (Auto) 69.7, Lymphocytes (%) (Auto) 20.4, Monocytes (%) (Auto) 8.1, Eosinophils (%) (Auto) 1.5, Basophils (%) (Auto) 0.0, Neutrophils # (Auto) 4.98, Lymphocytes # (Auto) 1.46, Monocytes # (Auto) 0.58, Eosinophils # (Auto) 0.11, Basophils # (Auto) 0.00 08/26/17 17:26 Test 08/26/17 17:26 White Blood Count 7.15 K/uL (4.8-10.8) Red Blood Count 4.00 M/uL (4.2-5.4) Hemoglobin 13.2 g/dL (12.0-16.0) Hematocrit 38.0 % (37-47) Mean Corpuscular Volume 95.0 fL (80-100) Mean Corpuscular Hemoglobin 33.0 pg (25-34) Mean Corpuscular Hemoglobin Concent 34.7 g/dl (32-36) Platelet Count 301 K/uL (130-400) Mean Platelet Volume 9.6 fL (7.4-10.4) Neutrophils (%) (Auto) 69.7 % Lymphocytes (%) (Auto) 20.4 % Monocytes (%) (Auto) 8.1 % Eosinophils (%) (Auto) 1.5 % Basophils (%) (Auto) 0.0 % Neutrophils # (Auto) 4.98 K/uL (1.4-6.5) Lymphocytes # (Auto) 1.46 K/uL (1.2-3.4) Monocytes # (Auto) 0.58 K/uL (0.11-0.59) Eosinophils # (Auto) 0.11 K/uL (0-0.5) Basophils # (Auto) 0.00 K/uL (0-0.2) RDW Standard Deviation 44.2 fL (36.4-46.3) RDW Coefficient of Variation 12.8 % (11.5-14.5) Immature Granulocyte % (Auto) 0.3 % Immature Granulocyte # (Auto) 0.02 K/uL (0.00-0.02) Anion Gap 11.0 mmol/L (3-11) Est Creatinine Clear Calc Drug Dose 109.9 ml/min Estimated GFR () 105.1 Estimated GFR (Non- 90.7 BUN/Creatinine Ratio 16.3 (10-20) Calcium Level 8.9 mg/dl (8.5-10.1) Total Bilirubin 1.1 mg/dl (0.2-1) Direct Bilirubin 0.5 mg/dl (0-0.2) Aspartate Amino Transf (AST/SGOT) 218 U/L (15-37) Alanine Aminotransferase (ALT/SGPT) 135 U/L (12-78) Alkaline Phosphatase 72 U/L (45-117) Troponin I < 0.015 ng/ml (0-0.045) Total Protein 7.9 gm/dl (6.4-8.2) Albumin 4.2 gm/dl (3.4-5.0) Lipase 161 U/L (73-393) Human Chorionic Gonadotropin, Qual NEG (NEG) Laboratory results reviewed by me Medications Administered Medications (Trade) Dose Ordered Sig/Rachael Route Start Time Stop Time Status Last Admin Dose Admin Lactated Ringer's 1,000 ml @ 999 mls/hr Q1H1M STAT IV 08/26/17 16:50 08/26/17 17:50 DC 08/26/17 17:26 999 MLS/HR Fentanyl Citrate (Fentanyl Inj) 50 mcg NOW STAT IV 08/26/17 16:50 08/26/17 16:56 DC 08/26/17 17:26 50 MCG Ondansetron HCl (Zofran Inj) 4 mg NOW STAT IV 08/26/17 16:50 08/26/17 16:56 DC 08/26/17 17:26 4 MG Morphine Sulfate (MoRPHine SULFATE INJ) 4 mg NOW STAT IM 08/26/17 18:33 08/26/17 18:35 DC 08/26/17 18:17 4 MG ED Course 1650: The patient was evaluated in room C11B. A complete history and physical exam was performed. 1704: I performed a bedside ultrasound. See radiology report. 1936: The patient is asymptomatic. She will follow-up outpatient with surgery. 1956: I reevaluated the patient. Discussed results and discharge instructions: She verbalized understanding and agreement. The patient is ready for discharge. Medical Decision I reviewed the patient's past medical history, medications, and the nursing notes as described above. Differential Diagnoses: Cholecystitis, choledocholithiasis, gastritis, GERD, ACS, pneumonia, bronchitis, panic attack. Patient is a 36-year-old woman who presents to emergency department with severe upper abdominal lower chest pain with nausea and vomiting for the past 2-1/2 hours with onset 15 minutes after eating a Thanksgiving meal per history of present illness. The patient is mildly uncomfortable and anxious, afebrile with stable vital signs. Positive Arango sign. Bedside ultrasound shows several mobile gallstones with ?gallstone in the gallbladder neck. No gross pericholecystic fluid. Unable to visualize CBD. Positive sonographic Arango sign. Will clarify with formal right upper quadrant ultrasound. WBC within normal limits. Bilirubin with obstructive pattern with direct bili elevated to 0.5 total bili 1.1. However, formal RUQ US with unremarkable CBD and no signs of cholecystitis. Patient was reassessed and symptoms completely resolved. Direct bili elevation likely 2/2 transient obstruction given resolution of sx. However, strict return instructions provided. CM assisting to arrange for outpatient surgery f/u. Findings and plan for follow-up reviewed with patient. Patient agreeable and d/c'd per discharge instructions. Medication Reconcilliation Current Medication List: was personally reviewed by me Blood Pressure Screening Patient's blood pressure: Normal blood pressure Impression Primary Impression: Biliary colic Additional Impression: Multiple gallstones Scribe Attestation The scribe's documentation has been prepared under my direction and personally reviewed by me in its entirety. I confirm that the note above accurately reflects all work, treatment, procedures, and medical decision making performed by me. Departure Information Dispostion Home / Self-Care Referrals No Doctor, Assigned (PCP) Forms IMPORTANT VISIT INFORMATION Patient Instructions ED Gallstone W Biliary Colic, My [facility] Additional Instructions Please follow up with your primary care physician and with surgery within the next week for re-evaluation and discussion of today's findings. Your symptoms were likely due to your multiple gallstones. Otherwise, your exam, ultrasound, and lab results did not show signs of an emergent condition at this time. Avoid fatty foods as this can provoke your symptoms. Return to the emergency department for worsening symptoms as described in the accompanying instructions. Problem Qualifiers
[2017-08-26 17:41] LABS: COMPLETE YES; EOS % 1.5 %; IG% 0.3 %; LYMPH % 20.4 %; LYMPH ABS # 1.46 K/uL (1.2-3.4); MEAN CORPUSCULAR HGB CONC 34.7 g/dl (32-36); MEAN PLATELET VOLUME 9.6 fL (7.4-10.4); MONO % 8.1 %; NEUT % 69.7 %; PLATELET COUNT 301 K/uL (130-400); WHITE BLOOD COUNT 7.15 K/uL (4.8-10.8)
--- NOTE | 2017-08-26 17:53 | DIAGNOSTIC IMAGING REPORT ---
CHEST ONE VIEW PORTABLE HISTORY: Atypical CHEST PAIN COMPARISON: None. FINDINGS: The lungs are clear. Cardiac silhouette is normal in size. No pleural effusions. No pneumothorax. IMPRESSION: No acute process. Electronically signed by: Selwyn Aldrich M.D. 08/26/2017 5:51 PM Dictated Date/Time: 08/26/2017 5:51 PM
[2017-08-26 17:59] LABS: ALT/SGPT 135 U/L (12-78); BLOOD UREA NITROGEN 14 mg/dl (7-18); BUN/CREATININE RATIO 16.3 (10-20); CALCIUM 8.9 mg/dl (8.5-10.1); CARBON DIOXIDE 24 mmol/L (21-32); CHLORIDE 103 mmol/L (98-107); CREATININE 0.83 mg/dl (0.60-1.20); GLUCOSE 122 mg/dl (70-99); POTASSIUM 3.3 mmol/L (3.5-5.1); SODIUM 138 mmol/L (136-145)
[2017-08-26 18:04] LABS: ALKALINE PHOSPHATASE 72 U/L (45-117); AST/SGOT 218 U/L (15-37)
[2017-08-26] MEDS ORDERED: MoRPHine SULFATE 4 MG/ML 1 ML CARP\\VIAL IV STA (18:06)
[2017-08-26] MEDS ORDERED: IBUP-1050 PO (18:07)
[2017-08-26] MEDS ORDERED: OMEP20CA9 PO (18:07)
[2017-08-26 18:15] LABS: PREG INTERNAL NEGATIVE QC NEG CLEAR BACKGROUND; PREG INTERNAL POSITIVE QC POS CONTROL LINE
[2017-08-26] MEDS: MoRPHine SULFATE 2 MG/ML CARP IM STA (18:17)
[2017-08-26 19:20] VITALS: BP 118/83; PULSE 77; O2SAT 100
--- NOTE | 2017-08-26 19:27 | DIAGNOSTIC IMAGING REPORT ---
ABDOMINAL ULTRASOUND, RIGHT UPPER QUADRANT HISTORY: +Arango's sign, gallstone in GB neck. COMPARISON: None. FINDINGS: Pancreas: The pancreas demonstrates a normal echotexture. Liver: Unremarkable. Gallbladder: No gallbladder wall thickening. Multiple small gallstones. CBD: 5 mm. Right kidney: No hydronephrosis. IMPRESSION: 1. Multiple small gallstones. No gallbladder wall thickening. 2. Normal caliber common bile duct. Electronically signed by: Selwyn Aldrich M.D. 08/26/2017 7:25 PM Dictated Date/Time: 08/26/2017 7:23 PM
== END 2017-08-26 19:50 | disposition home or self-care (01) ==
LOC: C.EDB 16:41 → C.EDC 19:50
DX: K80.70 Calculus of gallbladder and bile duct without cholecystitis without obstruction (principal); J45.909 Unspecified asthma, uncomplicated; Z98.51 Tubal ligation status; Z87.891 Personal history of nicotine dependence; Z83.3 Family history of diabetes mellitus; Z82.49 Family history of ischemic heart disease and other diseases of the circulatory system

== ENCOUNTER 2017-09-07 18:31 | Emergency (ER) | payer BC ==
[~2017-09-07] VITALS: Ht 165.1 cm; Wt 97.3 kg
[~2017-09-07 18:31] MED LIST changes: -ACET-1256 PO; +IBUP-1050 PO; -MTR/600 PO; +OMEP20CA9 PO; -OXYC1TAB3 PO; -PENI-82 PO
[2017-09-07 18:36] VITALS: TEMP 36.8; Ht 165.1 cm; Wt 97.3 kg
[2017-09-07] MEDS ORDERED: HYDR-5688 PO (18:58)
[2017-09-07] MEDS ORDERED: PENI-82 PO (18:58)
--- NOTE | 2017-09-07 19:00 | EMERGENCY ROOM VISIT NOTE ---
ED Visit Note First contact with patient: 18:44 CHIEF COMPLAINT: "Dental pain". HISTORY OF PRESENT ILLNESS: This 36-year-old female patient presented to the emergency department via private vehicle with a progressive toothache for past 2 -3 weeks that acutely worsened over the past day because she bit down on a cashew. The patient believes it is coming from inferior right posterior molars. The pain is now steady and severe and radiates to the face. The patient has a dentist appointment set up for summer. They rate their pain a 7/10 and the ibuprofen and Tylenol they have been taking has not relieved the pain. Denies facial swelling or fever. The patient denies any discharge from the mouth. REVIEW OF SYSTEMS: A 6 system review of systems was completed with positives and pertinent negatives listed in the HPI. ALLERGIES: Oxycodone MEDICATIONS: As noted below PMH: Previous tooth fracture SOCIAL HISTORY: Patient lives locally PHYSICAL EXAM: Vitals are noted on the nurse's note and reviewed by myself. Vital signs stable. Temperature 36.8C orally. GENERAL: 30 sexual female, in no acute distress, nondiaphoretic, well-developed well-nourished. Mouth: The right posterior inferior molar tooth is very carious and the gum is swollen and tender around it, without any discharge or signs of an abscess. The remainder of the pharynx and tonsils are without erythema, edema, or exudate. The airway is patent. There is no facial swelling, cervical or submandibular lymphadenopathy. The patient appears uncomfortable and in pain. The patient has overall fair dental hygiene. EARS: External auditory canals clear, tympanic membranes pearly renner without erythema or effusion bilaterally. ED COURSE: Patient was seen and evaluated as above. Previous visit was reviewed. She was here previously for dental fracture. On exam it appears that this has worsened secondary to her chewing a cashew recently. The [employer] drug monitoring system was queried and no red flags were identified. She'll be given a short prescription of [place] for pain as the oxycodone seemed to interact and cause headaches. At this time she is to follow with her dentist. There is no signs of Zach angina, or abscess. She was educated upon worrisome symptoms which to return, had questions answered prior to discharge, and was discharged home in good condition. She will also be given Pen-Vee K in the event and infection will develop. In the evaluation and treatment of this patient, the following differential diagnoses were considered: Periapical Abscess, Osteonecrosis of the Jaw, Dental Fracture, Dental Caries, Zach's Angina, Vincent's Angina, Facial Cellulitis. Problem List Medical Problems: (1) Asthma Status: Chronic (2) Bronchitis Status: Resolved (3) Pneumonia Status: Resolved Surgical Problems: (1) Hx of appendectomy Status: Resolved (2) Previous section Status: Resolved Current/Historical Medications Scheduled Omeprazole (Prilosec), 20 MG PO DAILY Penicillin V Potassium (Veetids), 500 MG PO QID Scheduled PRN Hydrocodone/Acetaminophen 5MG/325MG (Sheyenne 5MG/325MG), 1-2 TABLET PO Q6 PRN for Pain Ibuprofen (Advil), 400 MG PO UD PRN for Pain Allergies Coded Allergies: Oxycodone (Verified Adverse Reaction, Unknown, SEVERE HEADACHE-REBOUND, ) pt states if she gets a headache when taking this, tylenol will make it go away Vital Signs Date Time Temp Pulse Resp B/P (MAP) Pulse Ox O2 Delivery O2 Flow Rate FiO2 09/07/17 19:26 72 18 134/98 96 09/07/17 18:36 36.8 79 18 146/85 97 Room Air Medications Administered Medications (Trade) Dose Ordered Sig/Rachael Route Start Time Stop Time Status Last Admin Dose Admin Acetaminophen/ Hydrocodone Bitart (Sheyenne 5/325mg Home Pack) 1 homepack UD STAT PO 09/07/17 19:01 09/07/17 19:02 DC 09/07/17 19:26 1 HOMEPACK Departure Information Impression Primary Impression: Fractured tooth Dispostion Home / Self-Care Condition GOOD Prescriptions Hydrocodone/Acetaminophen 5MG/325MG (Sheyenne 5MG/325MG) Tab 1-2 TABLET PO Q6 Y for Pain, #15 TAB For Initial Treatment Prov: Lane Strange PA-C 09/07/17 Penicillin V Potassium (Veetids) 500 Mg Tab 500 MG PO QID, #40 TAB Prov: Lane Strange PA-C 09/07/17 Referrals Rhonda Jackson D.O. (PCP) Patient Instructions My [facility] Additional Instructions You have been treated in the Emergency Department for Dental Pain. You have been prescribed NORCO to be used for pain control. This is a narcotic medication. You cannot drive or consume alcohol while on this medicine. This medicine should only be used for pain that cannot be controlled with over-the- counter pain medicines. You were prescribed PENVK to be taken every 6 hours. This is an antibiotic. All antibiotics have the potential to cause diarrhea. Stop this medication and contact a medical provider if you were to develop any significant adverse side effects including: wheezing, shortness of breath, passing out, vomiting, or a diffuse rash. Always take antibiotics as directed and COMPLETE the ENTIRE course regardless of the improvement of your symptoms. For pain control, you can use the following [id number] medicines (if >12 yo): PLEASE NO TYLENOL WITH THE NORCO!! - Regular strength (200 mg/tab) Advil (ibuprofen) 1-2 tabs every 4-6 hours as needed. Do not exceed a dose of 3200 mg per day. Refrain from smoking cigarettes or using chewing tobacco until you have been evaluated by your dentist. Keeping beverages lukewarm and consuming soft foods can decrease your pain. Warm compresses over the affected area may offer some relief. You MUST seek evaluation of your dental pain by a dentist following your visit to the Emergency Department. The Emergency Department is not capable of treating dental issues long-term. You should call your dentist as soon as possible to make an appointment for evaluation of your dental pain. Return to the emergency department if you develop the following symptoms despite treatment course outlined above: fever, intractable pain, increased redness, swelling, or purulent discharge.
[2017-09-07] MEDS ORDERED: NORCO 5/325MG HOME PACK PO STA (19:01)
[2017-09-07 19:26] VITALS: BP 134/98; PULSE 72; O2SAT 96
== END 2017-09-07 19:27 | disposition home or self-care (01) ==
LOC: C.EDB 18:32 → C.EDD 19:27
DX: S02.5XXA Fracture of tooth (traumatic), initial encounter for closed fracture (principal); X58.XXXA Exposure to other specified factors, initial encounter; Y92.9 Unspecified place or not applicable; J45.909 Unspecified asthma, uncomplicated; Z79.899 Other long term (current) drug therapy

== ENCOUNTER 2017-09-22 01:15 | Emergency (ER) | payer BC ==
[~2017-09-22] VITALS: Ht 165.1 cm; Wt 97.8 kg
[~2017-09-22 01:15] MED LIST changes: +HYDR-5688 PO; +PENI-82 PO
[2017-09-22 01:19] VITALS: TEMP 36.9; Ht 165.1 cm; Wt 97.8 kg
[2017-09-22] MEDS ORDERED: NORCO 5/325MG HOME PACK PO ONE (01:30)
[2017-09-22] MEDS ORDERED: PENICILLIN V POTASSIUM 250 MG TAB PO ONE (01:30)
--- NOTE | 2017-09-22 01:32 | EMERGENCY ROOM VISIT NOTE ---
History Report prepared by Merrill: Alejandro Bowens Under the Supervision of: Dr. Adrian Torres M.D. First contact with patient: 01:25 Chief Complaint: DENTAL PAIN Stated Complaint: TOOTH PAIN Nursing Triage Summary: pt c/o cracked right bottom tooth, states "it's been awhile, some time this month." states she has an appt with oral surgery on the but pain has become worse. History of Present Illness The patient is a 36 year old female who presents to the Emergency Room with complaints of constant dental pain that began a month ago. She rates her pain as an 8/10 in severity. The patient states that she cracked her right bottom tooth a month ago and reports that she came to the ED. She states that she was prescribed [place], which she reports she has been cutting in half to extend her usage period. The patient states that she has scheduled oral surgery on the to remove the cracked tooth and her wisdom tooth. She denies facial swelling, trouble swallowing, shortness of breath, and chest pain. The patient reports that she also has scheduled a cholecystectomy on October 05. Source of History: patient Onset: a month ago Position: other (right bottom tooth) Symptom Intensity: 8/10 Timing: constant Modifying Factors (Relieving): other (Fieldton) Associated Symptoms: No chest pain, No SOB Review of Systems See HPI for pertinent positives & negatives. A total of 6 systems reviewed and were otherwise negative. Past Medical & Surgical Medical Problems: (1) Asthma (2) Bronchitis (3) elective repeat at term (4) Pneumonia Surgical Problems: (1) Hx of appendectomy (2) Previous section Family History Cancer Diabetes mellitus Hypertension Social History Smoking Status: Never Smoker Alcohol Use: none Drug Use: none Marital Status: Housing Status: lives with family Occupation Status: employed Current/Historical Medications Scheduled Omeprazole (Prilosec), 20 MG PO DAILY Penicillin V Potassium (Veetids), 500 MG PO QID Scheduled PRN Hydrocodone/Acetaminophen 5MG/325MG ([place] 5MG/325MG), 1-2 TABLET PO Q6 PRN for Pain Hydrocodone/Acetaminophen 5MG/325MG ([place] 5MG/325MG), 1 TABLET PO Q4H PRN for Pain Ibuprofen (Advil), 400 MG PO UD PRN for Pain Allergies Coded Allergies: Oxycodone (Verified Adverse Reaction, Unknown, SEVERE HEADACHE-REBOUND, ) pt states if she gets a headache when taking this, tylenol will make it go away Physical Exam Vital Signs Date Time Temp Pulse Resp B/P (MAP) Pulse Ox O2 Delivery O2 Flow Rate FiO2 09/22/17 01:58 89 18 132/93 98 09/22/17 01:19 36.9 81 18 128/78 94 Room Air Physical Exam GENERAL: Patient is uncomfortable appearing and in mild distress. HEENT: No acute trauma, normocephalic atraumatic, mucous membranes moist, no nasal congestion, no scleral icterus. Fractured carious right posterior molar. Mild surrounding erythema. NECK: No stridor, no adenopathy, no meningismus, trachea is midline. LUNGS: No dyspnea. Clear to auscultation and equal bilaterally. No wheeze, no rhonchi. HEART: Regular rate and rhythm. No murmurs, rubs, gallops appreciated. EXTREMITIES: Normal motion all extremities, no cyanosis, no edema. NEUROLOGIC: Alert and oriented, no acute motor or sensory deficits, no focal weakness, cranial nerves grossly intact. Medical Decision & Procedures Medications Administered Medications (Trade) Dose Ordered Sig/Rachael Route Start Time Stop Time Status Last Admin Dose Admin Penicillin V Potassium (Veetids Tab) 500 mg ONE ONCE PO 09/22/17 01:30 09/22/17 01:32 DC 09/22/17 01:52 500 MG Acetaminophen/ Hydrocodone Bitart ([place] 5/325mg Home Pack) 1 homepack UD ONCE PO 09/22/17 01:30 09/22/17 01:32 DC 09/22/17 01:52 1 HOMEPACK ED Course 0126: The patient was evaluated in room C12B. A complete history and physical exam was performed. 0129: Reevaluated the patient. Discussed results and discharge instructions: She verbalized understanding and agreement. The patient is ready for discharge. 0130: Ordered Hydrocodone Bitart/Acetaminophen 1 homepack PO, Veetids Tab 500 mg PO. Medical Decision Pleasant 36 yr old female with fractured/carious right posterior lower molar who has OMFS follow up in 6 days. She notes using 15 Fieldton tabs over last 3 weeks to get through pain but finally running out of them. Tramadol ineffective from PCP. Clearly uncomfortable. She is open about Fieldton and is not exhibiting clear evidence of drug seeking other than pain continues. She has plan to rectify dental issues. She understands the very real risk of narcotic addiction as well as restrictions regarding them. She hernandez not have ludwigs, abscess, nor need for emergent surgical evaluation. Reviewed symptoms requiring return. [facility] Drug Monitoring Program Search Results: patient reviewed within database, see additional documentation Drug Monitoring Findings: The patient has had 2 controlled substance prescriptions within the last month, which she is honest about. Medication Reconcilliation Current Medication List: was personally reviewed by me Blood Pressure Screening Patient's blood pressure: Normal blood pressure Impression Primary Impression: Fractured tooth Additional Impression: Dental caries Scribe Attestation The scribe's documentation has been prepared under my direction and personally reviewed by me in its entirety. I confirm that the note above accurately reflects all work, treatment, procedures, and medical decision making performed by me. Departure Information Dispostion Home / Self-Care Prescriptions Hydrocodone/Acetaminophen 5MG/325MG ([place] 5MG/325MG) Tab 1 TABLET PO Q4H Y for Pain, #15 TAB Prov: Adrian Torres M.D. 09/22/17 Penicillin V Potassium (Veetids) 500 Mg Tab 500 MG PO QID, #40 TAB Prov: Adrian Torres M.D. 09/22/17 Referrals No Doctor, Assigned (PCP) Patient Instructions My [facility] Additional Instructions Follow up with oral surgeon as planned. Return if worsening pain, swelling, difficulty breathing/swallowing, fevers, or other concerns. You have received a narcotic pain medication prescription. These medications may cause drowsiness and should not be used with other sedative medications. Do not drive, drink alcohol, perform dangerous activities, nor make important decisions after taking these medications. intermediate use or inappropriate use may lead to addiction. Problem Qualifiers
[2017-09-22] MEDS ORDERED: HYDR-5688 PO (01:33)
[2017-09-22] MEDS ORDERED: PENI-82 PO (01:33)
[2017-09-22 01:58] VITALS: BP 132/93; PULSE 89; O2SAT 98
== END 2017-09-22 01:58 | disposition home or self-care (01) ==
LOC: C.EDB 01:16 → C.EDC 01:58
DX: K02.9 Dental caries, unspecified (principal); S02.5XXA Fracture of tooth (traumatic), initial encounter for closed fracture; X58.XXXA Exposure to other specified factors, initial encounter; J45.909 Unspecified asthma, uncomplicated; Z98.890 Other specified postprocedural states; Z79.899 Other long term (current) drug therapy; Z88.5 Allergy status to narcotic agent; Z80.9 Family history of malignant neoplasm, unspecified; Z83.3 Family history of diabetes mellitus; Z82.49 Family history of ischemic heart disease and other diseases of the circulatory system

== ENCOUNTER 2017-10-05 14:53 | Emergency (ER) | payer BC ==
[~2017-10-05] VITALS: Ht 165.1 cm; Wt 96.7 kg
[2017-10-05 14:59] VITALS: BP 153/72; PULSE 90; TEMP 36.8; O2SAT 96; Ht 165.1 cm; Wt 96.7 kg
== END 2017-10-05 15:21 | disposition left against medical advice (07) ==
LOC: C.EDB 14:55
DX: R04.2 Hemoptysis (principal); Z98.890 Other specified postprocedural states